=== PATIENT | male | born 1980 | race Caucasian/White ===

== ENCOUNTER 2024-07-15 15:35 | Observation (INO) | payer OTHER ==
[2024-07-15 16:35] LABS: Acetaminophen Less than 10 mcg/mL (Less than 10); Alcohol Less than 10.0 mg/dL (Less than 10); Salicylate Less than 8.0 mg/dL (Less than 8.0)
[2024-07-15 16:37] LABS: ALT (SGPT) 157 U/L (8-55); AST (SGOT) 57 U/L (5-34); Albumin 5.1 g/dL (3.5-5.0); Alkaline Phosphatase 83 U/L (40-110); Anion Gap 19 mmol/L (10-20); BUN (Urea Nitrogen) 24 mg/dL (8.9-20.6); Bilirubin, Total 0.8 mg/dL (0.2-1.2); CK (CPK) 547 U/L (30-200); Calc. Creatinine Clearance 0 mL/min (70-130); Calcium 10.4 mg/dL (7.8-10.44); Carbon Dioxide 24 mmol/L (22-29); Chloride 96 mmol/L (98-107); Estimated GFR 47; Globulin 3.3 g/dL (2.4-3.5); Glucose 79 mg/dL (70-105); Potassium 4.4 mmol/L (3.5-5.1); Protein, Total 8.4 g/dL (6.0-8.3); Sodium 135 mmol/L (136-145)
[2024-07-15 16:41] LABS: #Basophils 0.05 10x3/uL (0.0-0.2); #Eosinphils 0.02 10x3/uL (0.0-0.5); #Monocytes 0.89 10x3/uL (0.0-1.1); #Neutrophils 7.51 10x3/uL (1.5-8.4); %Basophils 0.5 % (0.0-2.0); %Eosinophils 0.2 % (0.0-6.0); %Monocytes 8.8 % (0.0-10.0); %Neutrophils 73.8 % (40.0-75.0); Hematocrit 49.2 % (38.8-50.0); Hemoglobin 16.4 g/dL (13.5-17.5); Mean Corpuscular HGB CONC 33.3 g/dL (32.0-36.0); Mean Corpuscular Hemoglobin 29.5 pg (27.0-33.0); Mean Corpuscular Volume 88.5 fL (81.2-95.1); Mean Platelet Volume 10.7 fL (7.4-10.4); Platelet Count 291 10x3/uL (150-450); RBC Distribution Width 13.2 % (11.5-14.5); Red Blood Cell (RBC) Count 5.56 10x6/uL (4.32-5.72); White Blood Cell (WBC) Count 10.2 10x3/uL (3.5-10.5)
[2024-07-15] MEDS ORDERED: Acetaminophen 325 MG TAB PO PRN (18:29)
[2024-07-15 18:52] LABS: Bilirubin Neg (Negative); Blood, Urine Negative (Negative); Clarity Clear (Clear); Glucose, Urine (Dipstick) Normal (Negative); Ketone, Urine Negative (Negative); Leukocyte Negative (Negative); Nitrite Negative (Negative); Protein, Urine (Dipstick) 15 mg/dl (Neg-Trace); Urobilinogen Normal mg/dL (Less than 2)
[2024-07-15 19:01] LABS: Amphetamine Not Detected (NotDetected); Barbiturates Screen Not Detected (NotDetected); Benzodiazepine Screen Not Detected (NotDetected); Cocaine Metabolite Screen Not Detected (NotDetected); Methadone Detected (NotDetected); Methamphetamine Not Detected (NotDetected); Opiate Screen Not Detected (NotDetected); Oxycodone Screen Not Detected (NotDetected); Phencyclidine (PCP) Not Detected (NotDetected); THC/Cannabinoid Screen Detected (NotDetected); Tricyclic Screen Not Detected (NotDetected)
[2024-07-15] MEDS ORDERED: Lorazepam 2 MG/ML VIAL ONE (19:13)
[2024-07-15 19:14] LABS: Bacteria/HPF None Seen HPF (None Seen); CAUTI Indications for Culture Pelvic or flank pain; RBC/HPF None Seen HPF (0-3); Squamous Epithelial 0-3 HPF (0-3); WBC/HPF None Seen HPF (0-3)
[2024-07-15 19:15] LABS: Calcium Oxalate Crystals 1+ HPF (None Seen); Urine Culture Reflex No No
[2024-07-15 20:50] VITALS: BMI 35.9
[2024-07-15] MEDS ORDERED: traZODone HCl 50 MG TAB PO PRN (21:03)
[2024-07-15] MEDS ORDERED: Melatonin 3 MG TAB PO PRN (21:05)
[2024-07-15] MEDS: Sodium Chloride 0.9% 1,000 ML IV SCH (23:25)
[2024-07-15] MEDS: hydrOXYzine 25 MG TAB PO PRN (23:26)
[2024-07-16] MEDS: Lorazepam 2 MG/ML VIAL SLOW IVP SCH (00:09)
[2024-07-16] MEDS: FLUoxetine HCl 20 MG CAP PO SCH (08:28)
[2024-07-16] MEDS ORDERED: LATUDA 60 MG PO SCH (09:00)
[2024-07-16] MEDS ORDERED: LATUDA 80 MG PO SCH (09:00)
[2024-07-16] MEDS: Lorazepam 1 MG TAB PO PRN (10:00)
[2024-07-16 10:29] LABS: Anion Gap 12 mmol/L (10-20); BUN (Urea Nitrogen) 17 mg/dL (8.9-20.6); CK (CPK) 661 U/L (30-200); Calc. Creatinine Clearance 178 mL/min (70-130); Calcium 8.4 mg/dL (7.8-10.44); Carbon Dioxide 26 mmol/L (22-29); Chloride 103 mmol/L (98-107); Estimated GFR 99; Glucose 84 mg/dL (70-105); Potassium 3.2 mmol/L (3.5-5.1); Sodium 138 mmol/L (136-145)
[2024-07-16] MEDS: METHadone HCl 10 MG TAB PO SCH (11:07)
[2024-07-16] MEDS: FLU (Fluarix Triv) TS24-25(6MOS UP)/PF 45 MCG/0.5 ML Syringe IM ONE (11:13)
[2024-07-16] MEDS: Sodium Chloride 0.9% 1,000 ML IV SCH (11:18)
[2024-07-16] MEDS: Potassium Chloride 20 MEQ TAB PO SCH (14:33)
[2024-07-16 15:20] VITALS: BP 155/79; TEMP 97.9
[2024-07-16] MEDS ORDERED: hydrOXYzine 25 MG TAB PO SCH (21:00)
[2024-07-17] MEDS ORDERED: METHadone HCl 10 MG TAB PO SCH (09:00)
== END 2024-07-16 16:45 | disposition home or self-care (01) ==
LOC: CSHERS 15:35 → INTOOBSV 18:56 → CSHTELE 18:56
PROVIDERS: ADMIT Internal Medicine; ATTEND Internal Medicine
DX: R45.851 Suicidal ideations (principal); F31.9 Bipolar disorder, unspecified; F41.9 Anxiety disorder, unspecified; F41.0 Panic disorder [episodic paroxysmal anxiety]; N17.9 Acute kidney failure, unspecified; G47.00 Insomnia, unspecified; F11.90 Opioid use, unspecified, uncomplicated; E87.1 Hypo-osmolality and hyponatremia; E87.6 Hypokalemia; F12.10 Cannabis abuse, uncomplicated; R94.5 Abnormal results of liver function studies; F17.290 Nicotine dependence, other tobacco product, uncomplicated; R74.8 Abnormal levels of other serum enzymes; Z79.899 Other long term (current) drug therapy
CPT/HCPCS: 36415; 80048; 80053; 80306; 80307; 81001; 82550; 85025; 90656; 93005; 96361; 96374; 96376; G0378; J2060; J7030

== ENCOUNTER → 2024-08-18 | Emergency (ER) | payer OTHER ==
[~2024-08-18] MED LIST: Lorazepam 1 MG TAB ONE; METHadone HCl 10 MG TAB PO SCH; Nicotine 21 MG PATCH TOP SCH; Ziprasidone 20 MG CAP ONE; hydrOXYzine 25 MG TAB ONE; traZODone HCl 50 MG TAB ONE
[2024-08-18 08:51] LABS: #Basophils 0.06 10x3/uL (0.0-0.2); #Eosinophils 0.03 10x3/uL (0.0-0.5); #Monocytes 0.55 10x3/uL (0.0-1.1); #Neutrophils 3.88 10x3/uL (1.5-8.4); %Basophils 1.1 % (0.0-2.0); %Eosinophils 0.5 % (0.0-6.0); %Lymphocytes 19.4 % (18.0-47.0); %Monocytes 9.8 % (0.0-10.0); %Neutrophils 68.8 % (40.0-75.0); Hematocrit 42.9 % (38.8-50.0); Hemoglobin 14.6 g/dL (13.5-17.5); Mean Corpuscular Hemoglobin 30.6 pg (27.0-33.0); Mean Corpuscular Volume 89.9 fL (81.2-95.1); Mean Platelet Volume 10.5 fL (7.4-10.4); Platelet Count 227 10x3/uL (150-450); RBC Distribution Width 13.7 % (11.5-14.5); Red Blood Cell (RBC) Count 4.77 10x6/uL (4.32-5.72); White Blood Cell (WBC) Count 5.6 10x3/uL (3.5-10.5)
[2024-08-18 08:57] LABS: ALT (SGPT) 111 U/L (8-55); AST (SGOT) 46 U/L (5-34); Acetaminophen Less than 10 mcg/mL (Less than 10); Albumin 4.2 g/dL (3.5-5.0); Alcohol Less than 10.0 mg/dL (Less than 10); Alkaline Phosphatase 60 U/L (40-110); Anion Gap 16 mmol/L (10-20); BUN (Urea Nitrogen) 19 mg/dL (8.9-20.6); Bilirubin, Total 0.6 mg/dL (0.2-1.2); Calc. Creatinine Clearance 0 mL/min (70-130); Calcium 9.4 mg/dL (7.8-10.44); Carbon Dioxide 25 mmol/L (22-29); Chloride 102 mmol/L (98-107); Estimated GFR 110; Globulin 3.1 g/dL (2.4-3.5); Glucose 104 mg/dL (70-105); Potassium 4.1 mmol/L (3.5-5.1); Protein, Total 7.3 g/dL (6.0-8.3); Salicylate Less than 8.0 mg/dL (Less than 8.0); Sodium 139 mmol/L (136-145)
[2024-08-18 12:02] LABS: Amphetamine Not Detected (NotDetected); Barbiturates Screen Not Detected (NotDetected); Benzodiazepine Screen Not Detected (NotDetected); Cocaine Metabolite Screen Not Detected (NotDetected); Methadone Detected (NotDetected); Methamphetamine Not Detected (NotDetected); Opiate Screen Not Detected (NotDetected); Oxycodone Screen Not Detected (NotDetected); Phencyclidine (PCP) Not Detected (NotDetected); THC/Cannabinoid Screen Detected (NotDetected); Tricyclic Screen Not Detected (NotDetected)
== END ==
LOC: CSHERS 08:00
DX: R45.851 Suicidal ideations (principal); F17.210 Nicotine dependence, cigarettes, uncomplicated
CPT/HCPCS: 36415; 80053; 80306; 80307; 84443; 85025; 99285